=== PATIENT | male | born 1970 | race Caucasian/White ===

== ENCOUNTER 2020-10-19 07:21 | Day surgery (SDC) | payer OTHER, SELFPAY ==
[~2020-10-19] VITALS: Ht 182.9 cm; Wt 176.4 kg
[2020-10-19] MEDS ORDERED: SIMETHICONE 40 MG/0.6 ML ML ONE (07:40)
[2020-10-19] MEDS ORDERED: fentaNYL CITRATE/PF 100 MCG/2 ML AMP ONE (07:40)
[2020-10-19] MEDS ORDERED: DIPHENHYDRAMINE INJ 50 MG/ML VIAL ONE (07:40)
[2020-10-19] MEDS ORDERED: MEPERIDINE 100 MG INJ. 100 MG/ML VIAL ONE (07:41)
[2020-10-19] MEDS ORDERED: MIDAZOLAM HCL 5 MG/5 ML VIAL ONE (07:41)
[2020-10-19 13:16] VITALS: BP_SYST 202
== END 2020-10-19 11:00 | disposition home or self-care (01) ==
LOC: SDS 07:21
PROVIDERS: ATTEND Internal Medicine Gastroenterology
DX: Z12.11 Encounter for screening for malignant neoplasm of colon (principal); D12.4 Benign neoplasm of descending colon; D12.7 Benign neoplasm of rectosigmoid junction; D12.5 Benign neoplasm of sigmoid colon; D12.3 Benign neoplasm of transverse colon; K57.30 Diverticulosis of large intestine without perforation or abscess without bleeding; K64.8 Other hemorrhoids; G47.33 Obstructive sleep apnea (adult) (pediatric); Z99.89 Dependence on other enabling machines and devices; E66.01 Morbid (severe) obesity due to excess calories; Z68.43 Body mass index [BMI] 50.0-59.9, adult; Z20.828 Contact with and (suspected) exposure to other viral communicable diseases
CPT/HCPCS: 45380; 45381; 45385; 88305; 94660; 99152; 99153; G0378; J2175; J2250; J7120; U0003; 45384; J1200; J3010; J7030

== ENCOUNTER 2023-03-24 06:00 | Day surgery (SDC) | payer OTHER ==
[~2023-03-24] VITALS: Ht 182.9 cm; Wt 167.4 kg
[2023-03-24] MEDS ORDERED: MIDAZOLAM HCL 5 MG/5 ML VIAL ONE (06:29)
[2023-03-24] MEDS ORDERED: MEPERIDINE 100 MG INJ. 100 MG/ML VIAL ONE (06:29)
[2023-03-24 07:25] VITALS: PULSE 81
[2023-03-24 08:07] VITALS: O2SAT 97
[2023-03-25 10:51] VITALS: BP_SYST 150; PULSE 68; RESP 19
== END 2023-03-24 08:36 | disposition home or self-care (01) ==
LOC: SDS 06:00 → SMU 06:00 → SDS 08:36
PROVIDERS: ATTEND Internal Medicine Gastroenterology
DX: Z12.11 Encounter for screening for malignant neoplasm of colon (principal); D12.5 Benign neoplasm of sigmoid colon; K57.30 Diverticulosis of large intestine without perforation or abscess without bleeding; K64.8 Other hemorrhoids; Z86.010 Personal history of colon polyps; E66.01 Morbid (severe) obesity due to excess calories; Z68.43 Body mass index [BMI] 50.0-59.9, adult; Z79.899 Other long term (current) drug therapy
CPT/HCPCS: 45385; 88305; 99152; G0378; J2250; J2175